=== PATIENT | female | born 2000 | race Caucasian/White ===

== ENCOUNTER 2022-08-11 18:56 | Emergency (ER) | payer MEDICAID, SELFPAY ==
[2022-08-11 18:56] VITALS: BP 117/74; PULSE 100; RESP 23; TEMP 36.7; O2SAT 98; BMI 23.8
--- NOTE | 2022-08-11 19:14 | ED.VIS.DYS ---
HPI History of Present Illness Chief Complaint: Shortness of Breath Narrative Narrative: 22-year-old female presenting with shortness of breath. She states she developed a cold about 3 days ago. She had cough, body aches. She denies any fever. She states that she is getting worse and she feels more short of breath. She reports has a history of asthma and she feels like currently she is having shallow breathing. Denies chest pain. She does state that she had some cammie sputum from coughing so much. States her back now hurts from coughing so much. Denies other significant medical history. No concern for . No known drug allergies. [facility] Medical History Asthma Home Medications prednisone 50 mg tablet 50 mg PO DAILY 5 days #5 tabs 08/11/22 [Rx Last Taken Unknown] Allergy/AdvReac Type Severity Reaction Status Date / Time No Known Allergies Allergy Verified 08/11/22 18:58 Surgical History no surgical history Social History Smoking Status: Never smoker ROS ROS ED Constitutional Constitutional ED: Reports chills; Denies fever(s) or sweats Eyes Eyes: Denies blurry vision or change in vision ENT ENT ED: Denies ear pain or sore throat Cardiovascular Cardiovascular: Denies chest pain, palpitations or racing heartbeat Respiratory/Chest Respiratory/Chest: Reports cough; Denies dyspnea or sputum Gastrointestinal Gastrointestinal: Denies abdominal pain, constipation, diarrhea, nausea or vomiting Genitourinary Genitourinary ED: Denies dysuria, hematuria or urinary frequency Musculoskeletal Musculoskeletal: Reports back pain and myalgias; Denies arthralgias or neck pain Integumentary Denies abscess, Abrasions or rash Neurologic Neurologic: Denies headache(s), paresthesias or weakness Psychiatric Psychiatric: Denies anxiety, depression, suicidal ideation or suicidal thoughts Endocrine Endocrinology: Denies polydipsia or polyuria EXAM Physical Exam Const Vital Signs: 08/11/22 18:56 08/11/22 19:12 08/11/22 19:16 Temperature 98.1 F Temperature Source Temporal Pulse Rate 100 115 H Respiratory Rate 23 H 20 H Respiratory Effort Short of Breath Respiratory Depth Deep Respiratory Pattern Tachypnea Normal Blood Pressure 117/74 Blood Pressure Mean 88 Pulse Ox 98 Oxygen Delivery Method Room Air Room Air 08/11/22 19:16 08/11/22 21:38 Temperature Temperature Source Pulse Rate 62 Respiratory Rate 16 15 Respiratory Effort Normal Non-Labored Short of Breath Respiratory Depth Deep Respiratory Pattern Normal Blood Pressure 125/77 H Blood Pressure Mean Pulse Ox 98 99 Oxygen Delivery Method Room Air Positive well nourished General Appearance ED: NAD; Negative for pallor HEENT Reports moist mucous membranes Eyes PERRL and EOMs intact bilaterally Resp Resp Narrative: Slightly tachypneic Auscultation: wheezes expiratory wheezes; Negative for rales or rhonchi Cardio regular rate and regular rhythm Extremity normal to inspection General Extremety ED: Yes edema General Extremity: edema Neuro oriented x3 and CN's II-XII intact bilaterally Sensorium / Orientation: alert Motor Exam: strength 5/5 throughout Psych mental status grossly normal Skin no wounds General Skin Exam: Negative for jaundice or pallor MDM MDM MDM Narrative Medical decision making narrative: 19-year-old female with history of asthma presenting for shortness of breath. She is wheezing on examination. She reports that her boyfriend was sick last week and she likely caught a cold from him. Patient given prednisone 60 mg p.o., breathing treatments. I will obtain a chest x-ray to rule out pneumonia. After breathing treatments patient was reevaluated and feels much improved. She is given a prednisone burst for home. I have gave her 2 puffs of albuterol inhaler to send home with her due to the time a night. She is amenable to this plan. Return precautions discussed. Impression: 1. Viral syndrome 2. Asthma exacerbation Radiography Diagnostic Testing: Clinical Impression(s) from Imaging Studies Chest X-Ray 08/11/22 19:33 IMPRESSION: No radiographic evidence of acute cardiopulmonary disease. Electronically Signed: Arpan Vu MD at 20:18 EDT , Discharge Plan Triage Chief Complaint: Shortness of Breath ED Provider: Darrel Gallardo Dx/Rx/DC Orders Instructions: ED Asthma, Acute (Adult), ED Viral Syndrome (Adult) Prescriptions: New prednisone 50 mg tablet 50 mg PO DAILY 5 Days Qty: 5 0RF Primary Care Provider: Care Physician,No Primary Referrals: Vasu Barrera MD [Med Staff - Active Staff] - 3-5 Days Care Physician,No Primary [Primary Care Provider] - Disposition Disposition: Home, Self Care Discharge Date/Time: 08/11/22 21:38
[2022-08-11 19:16] VITALS: PULSE 115; RESP 16; RESP 20; O2SAT 98
[2022-08-11] MEDS: Albuterol 2.5 MG/3 ML VIAL.NEB. INHALATION (19:16)
[2022-08-11] MEDS: Ipratropium/Albuterol Sulfate 3 ML AMPUL.NEB INHALATION (19:16)
[2022-08-11] MEDS: predniSONE 20 MG Tablet 60 MG PO (19:29)
--- NOTE | 2022-08-11 19:33 | RAD_ITS ---
EXAM: XR CHEST, 1 VIEW CLINICAL INDICATION: cough TECHNIQUE: Frontal view of the chest. This report was created using [employer] report generation technology. COMPARISON: None. FINDINGS: LUNGS AND PLEURAL SPACES: Unremarkable. No consolidation or edema. No pneumothorax. No effusion. HEART: Unremarkable. Cardiac silhouette not enlarged. MEDIASTINUM: Central airways and mediastinal contour are unremarkable. BONES/JOINTS: Unremarkable. SOFT TISSUES: Unremarkable. RAD/Chest 1 View (Portable) IMPRESSION: No radiographic evidence of acute cardiopulmonary disease. Electronically Signed: Arpan Vu MD at 20:18 EDT ,
--- NOTE | 2022-08-11 19:33 | CPS ---
x1 Albuterol given to pt. in ER as well
[2022-08-11] MEDS: Albuterol Sulfate 8 gm Inhaler (60 puffs) 2 PUFF INHALATION (21:37)
[2022-08-11 21:38] VITALS: BP 125/77; PULSE 62; RESP 15; O2SAT 99
== END 2022-08-11 21:38 | disposition home or self-care (01) ==
PROVIDERS: Emergency Provider Student in an Organized Health Care Education/Training Program; Visit Provider Student in an Organized Health Care Education/Training Program
DX: B34.9 Viral infection, unspecified (principal); J45.901 Unspecified asthma with (acute) exacerbation
CPT/HCPCS: G0463; 71045; 94640; 99252; 99283

== ENCOUNTER 2023-06-21 15:08 | Emergency (ER) | payer BC, SELFPAY ==
[2023-06-21 15:09] VITALS: BP 110/82; PULSE 98; RESP 16; TEMP 36; O2SAT 99; BMI 23.1
--- NOTE | 2023-06-21 15:30 | EDS_ITS ---
HPI History of Present Illness Chief Complaint: Chest Other Detail of Chief Complaint: rib pain Informant: patient Narrative Narrative: About 3 weeks ago patient noticed acute onset of pain in her left anterior lateral rib cage just below her breast while lifting something at work. Has been sore ever since, but not severe until today when she sneezed. At that point, she felt a pop and severe pain that has been persistent since then, r adiates to her sternum and around the nearby ribs to her left back but not all the way to the spine. Hurts to move, hurts to breathe, and when she takes of breath and it hurts and makes her winded because the pain is so bad but she is not dyspneic if she is breathing gently and not causing lots of pain. Denies any other pain or injury. No recent URIs. [facility] Medical History Asthma Home Medications prednisone 50 mg tablet 50 mg PO DAILY 5 days #5 tabs 08/11/22 [Rx Last Taken Unknown] naproxen 500 mg tablet 500 mg PO BID PRN #20 tabs 06/21/23 [Rx Last Taken Unknown] tramadol 50 mg tablet 50 mg PO Q6H PRN pain 3 days #12 tabs 06/21/23 [Rx Last Taken Unknown] Allergy/AdvReac Type Severity Reaction Status Date / Time No Known Allergies Allergy Verified 06/21/23 15:09 Social History Smoking Status: Never smoker ROS ROS ED Constitutional Constitutional ED: Denies chills or fever(s) Eyes Eyes: Denies change in vision or diplopia ENT ENT ED: Denies rhinorrhea or sore throat Cardiovascular Cardiovascular: Reports chest pain; Denies palpitations Respiratory/Chest Respiratory/Chest: Reports dyspnea; Denies cough Gastrointestinal Gastrointestinal: Denies abdominal pain, diarrhea, nausea or vomiting Genitourinary Genitourinary ED: Denies dysuria or hematuria Musculoskeletal Musculoskeletal: Denies back pain or neck pain Integumentary Denies abscess or rash Neurologic Neurologic: Denies headache(s), paresthesias or weakness Psychiatric Psychiatric: Denies anxiety or suicidal thoughts EXAM Physical Exam Const Vital Signs: 06/21/23 15:09 Temperature 96.8 F L Temperature Source Temporal Pulse Rate 98 Respiratory Rate 16 Blood Pressure 110/82 H Blood Pressure Mean 91 Pulse Ox 99 Oxygen Delivery Method Room Air Positive well nourished and well developed General Appearance ED: well developed and NAD HEENT Reports moist mucous membranes normocephalic and atraumatic Eyes PERRL and EOMs intact bilaterally Neck full ROM and supple Chest Wall inspection of chest normal Chest Narrative: Tender approximately ribs 5-8 left lateral clavicular line, there is no crepitance or obviously palpable step-off, there is no flail chest. With gentle tidal volume she does not splint and is in no distress. There are equal breath sounds bilaterally. Resp normal respiratory effort and clear to auscultation bilaterally Resp Narrative: Clear except for slight end expiratory wheeze on the left side. Effort and Inspection: able to speak in complete sentences Cardio regular rate, regular rhythm and no murmurs GI non-tender and non-distended Auscultation: normoactive bowel sounds Palpation: soft Back/Spine General Back: other FROM Extremity normal to inspection General Extremety ED: Negative for edema, pulses abnormal or tenderness General Extremity: Negative for edema or pulses abnormal Neuro oriented x3, CN's II-XII intact bilaterally and no sensory deficits noted Sensorium / Orientation: awake and alert Motor Exam: strength 5/5 throughout Skin no rashes or lesions noted and no wounds MDM MDM MDM Narrative Medical decision making narrative: 5 view x-ray series of the left rib cage including PA chest all normal on my interpretation including lack of any rib fractures or pneumothorax. Radiology in agreement. Patient's pain is all very reproducible on exam and worse with movement, and chest wall etiology makes the most sense here. I do not think she needs to be worked up for cardiac etiologies or pulmonary embolus. Differential includes subluxed rib, intercostal strain/tear, nonvisualized nondisplaced fracture. Supportive care advised at this time, as well as outpatient follow- up, she is prescribed Naprosyn and some tramadol to use at night for sleep which she was having trouble with due to the pain, she does not have a PCP so she was referred to the next physician on the unassigned list Dr. Connolly. Radiography Diagnostic Testing: Clinical Impression(s) from Imaging Studies Ribs w/Chest X-Ray 06/21/23 15:30 IMPRESSION: RIBS: Normal x-ray examination of the ribs. CHEST: Normal x-ray examination of the chest. Electronically Signed: Jerod Mckeon MD at 15:49 EST , Discharge Plan Triage Chief Complaint: Chest Other ED Provider: Sammy Arceo Dx/Rx/DC Orders Clinical Impression: Soft tissue injury of left chest wall Instructions: ED Strain Chest Wall Prescriptions: New tramadol 50 mg tablet 50 mg PO Q6H PRN (Reason: pain) 3 Days Qty: 12 0RF naproxen 500 mg tablet 500 mg PO BID PRN Qty: 20 0RF No Action prednisone 50 mg tablet 50 mg PO DAILY 5 Days Qty: 5 0RF Primary Care Provider: Care Physician,No Primary Referrals: Afshin Connolly DO [Med Staff - Admissions Supervisor] - (call for appt) Care Physician,No Primary [Primary Care Provider] - Disposition Disposition: Home, Self Care
--- NOTE | 2023-06-21 15:30 | RAD_ITS ---
STUDY: X-RAY - UNILATERAL RIBS ( LEFT ) WITH CHEST REASON FOR EXAM: Female, 22 years old. Pain/injury TECHNIQUE - RIBS: 4 view(s) of the ribs. TECHNIQUE - CHEST: Single PA view of the chest. COMPARISON: None. FINDINGS - RIBS: Normal visualized ribs without a demonstrated fracture. FINDINGS - CHEST: Hyperinflation. Scattered calcified granulomas. There is no demonstrated pleural abnormality. Normal size heart. Normal mediastinum and car. Normal visualized pulmonary arteries. Normal visualized aortic arch and descending thoracic aorta. Normal visualized thoracic spine. Normal visualized ribs, clavicles, and shoulders. There is no demonstrated abnormality of the visualized soft tissue structures of the upper abdomen. RAD/Ribs Uni Min 3V w/PA Chest IMPRESSION: RIBS: Normal x-ray examination of the ribs. CHEST: Normal x-ray examination of the chest. Electronically Signed: Jerod Mckeon MD at 15:49 EST ,
--- OUTSIDE RECORDS SUMMARY | 2023-06-21 16:20 | XMS RPT_ITS | CCD ---
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 Name Role Phone DORETHA COLLINS Unavailable Unavailable REFERRED, SELF Unavailable Unavailable DORETHA COLLINS Unavailable Unavailable Unavailable Primary Care Provider Unavailmichelle e KERA BURNETT Admitting Unavailable TRENT GARNICA Referring Unavaila PRADEEP Iglesias Consulting Unavailable LYNN MARY Attending Unavailable TRENT GARNICA Attending Unavaila VANCE Vo Attending Unavailable Unavailable Primary Care Provider Unavailmichelle e Allergies Allergy Classification Reported Allergen(s) Allergy Type Date of Onset Reaction(s) Facility (1 source) Seasonal allergy; Translations: [SEASONAL ALLERGIES] Propensity to adverse reactions (disorder) 4 [facility] Medications Current Medications Medication Drug Class(es) Dates Sig (Normalized) Sig (Original) [id number] 200 actuat albuterol 0.09 mg/actuat metered dose inhaler (2 sources) beta2-Adrenergic Agonist Start: 03-15-2023 take 2 puff(s) by inhalation every four hours as needed for wheezing Albuterol 108 (90 Base) MCG/ACT Aero Soln inhaler Inhale 2 puffs every 4 hours as needed for Wheezing or Shortness of Breath. 18 g 0 03/15/2023 Active Completed/Discontinued Medications Medication Drug Class(es) Dates Sig (Normalized) Sig (Original) albuterol 0.833 mg/ml / ipratropium bromide 0.167 mg/ml inhalation solution (1 source) Anticholinergic, beta2-Adrenergic Agonist Start: 3 End: 3 Ipratropium-albuterol (DUONEB) 0.5-2.5 (3) MG/3ML nebulizer solution 3 mL ibuprofen 400 mg oral tablet (1 source) Nonsteroidal Anti-inflammatory Drug Start: 9 End: 9 ibuprofen (ADVIL;MOTRIN) tablet 400 mg methylPREDNISolone 125 mg injection (1 source) Corticosteroid Start: 3 End: 3 methylPREDNISolone sodium succinate (SOLU-MEDROL) injection 125 mg sulfamethoxazole 800 mg / trimethoprim 160 mg oral tablet (2 sources) Dihydrofolate Reductase Inhibitor Antibacterial, Sulfonamide Antimicrobial Start: 9 End: 9 sulfamethoxazole-trim ethoprim (BACTRIM DS;SEPTRA DS) 800-160 MG per tablet 1 tablet Problems Active Problems Problem Classification Problem Date Documented Date Episodic/Chronic Acute and chronic tonsillitis (1 source) Peritonsillar abscess; Translations: [Peritonsillar abscess] Onset: 04-21-2022 Episodic Asthma (5 sources) Exacerbation of asthma; Translations: [Unspecified asthma with (acute) exacerbation] Onset: 03-15-2023 03-15-2023 Chronic Inflammatory diseases of female pelvic organs (2 sources) Cyst of Bartholin's gland duct; Translations: [Acute vulvitis] Onset: 12-27-2017 12-27-2017 Episodic Menstrual disorders (1 source) Dysmenorrhea; Translations: [Severe dysmenorrhea] Onset: 09-13-2016 09-13-2016 Chronic Other female genital disorders (1 source) Abnormal uterine bleeding; Translations: [Abnormal uterine bleeding (AUB)] Onset: 09-13-2016 09-13-2016 Chronic Other lower respiratory disease (4 sources) Dyspnea; Translations: [Shortness of breath] Onset: 03-15-2023 03-15-2023 Episodic Other lower respiratory disease (1 source) Shortness of breath; Translations: [Shortness of breath] Onset: 03-16-2023 Episodic Past or Other Problems Problem Classification Problem Date Documented Da te Episodic/Chronic Other connective tissue disease (1 source) Other muscle spasm; Translations: [Trapezius muscle spasm] Onset: 07-20-2021 Episodic Results Test Name Value Interpretation Reference Range Facil ity Vital Signs Date Time Vital Sign Value Performing Clinician Jaquelin glass 03-15-2023 22:47-0400 SaO2% (BldA) [Mass fraction] 91.9 % [facility] 03-15-2023 22:05-0400 Body height 162.6 cm [facility] 03-15-2023 22:05-0400 SaO2% (BldA) [Mass fraction] 99 % [facility] 03-15-2023 22:04-0400 Body temperature 98.1 [degF] [facility] 03-15-2023 22:04-0400 Diastolic blood pressure 84 mm[Hg] [facility] 03-15-2023 22:04-0400 Heart rate 74 /min [facility] 03-15-2023 22:04-0400 Respiratory rate 22 /min [facility] 03-15-2023 22:04-0400 Systolic blood pressure 125 mm[Hg] [facility] 02-11-2019 17:45-0400 BMI (Body Mass Index) 18.88 kg/m2 [facility], [place] 02-11-2019 17:45-0400 Body Temperature 98.29 [degF] [facility], [place] 02-11-2019 17:45-0400 Body weight 49.9 kg [place], [place] 02-11-2019 17:45-0400 BP Diastolic 79 mm[Hg] [facility] , [place] 02-11-2019 17:45-0400 BP Systolic 107 mm[Hg] [facility] [place] 02-11-2019 17:45-0400 Height 162.6 cm [facility] [place] 02-11-2019 17:45-0400 Pulse (Heart Rate) 91 /min [facility] [place] 02-11-2019 17:45-0400 Pulse Oximetry 100 % [facility] [place] 02-11-2019 17:45-0400 Respiratory Rate 16 /min [facility], [place] Encounters Encounter Date Encounter Type Care Provider Facility Start: 03-16-2023 End: 03-16-2023 Emergency department patient visit [facility] Start: 03-15-2023 End: 03-15-2023 Emergency department patient visit [facility] Emergency Department Procedures Date Procedure Procedure Detail Performing Clinician Start: 03-15-2023 Radiologic exam ches t single view Girish Hilton [employer] OF [employer] Work Phone: Start: 03-15-2023 Basic metabolic pane l calcium total Girish Hilton [employer] Work Phone: Start: 03-15-2023 BLOOD GAS VENOUS Girish Hilton [employer] Work Phone: Start: 03-15-2023 Complete blood count with white cell differential, automated Girish Hiltno [employer] OF [employer] Work Phone: Plan of Treatment Date Care Activity Detail Author Start: 01-28-2023 Influenza vaccination INFLUENZA VACC INE (#1) [facility] Start: 02-24-2022 DTaP/Tdap/Td vaccine (7 - Td) DTaP/Tdap/Td vaccine (7 - Td) [place], [place] Start: 02-24-2022 Tetanus vaccination TETANUS [facility] Start: 2020 Screening for malign ant neoplasm of cervix CERVICAL CANCER SCREENING DISCUSSION [facility] Start: 01-28-2019 Influenza vaccination Flu vaccine (# 1) [place], [place] Start: 2015 Chlamydia screen Chlamydia screen [place], [place] Start: 2015 Screening for Chlamy martín trachomatis CHLAMYDIA SCREEN [facility] Start: 2014 HIV screen HIV screen [place], [place] Start: 2014 HIV screening HIV SCREENING DISCUSSION [facility] Start: 2014 HPV vaccine (1 - Fem malvin 3-dose series) HPV vaccine (1 - Female 3-dose series) [place], [place] Start: 2010 Vaccination for vida n papillomavirus HPV VACCINE ADOL (1 - 2-dose series) [facility] Start: 01-22-2000 COVID-19 VACCINE (#1) COVID-19 VACCI NE (#1) [facility] Start: 1999 Hepatitis C screening HEPATITI S C VIRUS SCREENING [facility] Start: 1999 Screening for Chlamy martín trachomatis GONORRHEA SCREEN [facility] Immunizations Immunization Date Immunization Notes Care Provider Prudence cardenas 02-25-2012 influenza virus vacc ine, unspecified formulation [facility] Payers Date Payer Category Payer Unknown [employer] O PPO POS [id number] 2022-Present [address] [place] [address] [id number] 2022 Unknown [id number] 2021 Unknown [id number] 2016 Unknown [employer] [address] xxxxxxxxxxxx 2016-Present [phone] [address] [place] [address] xxxxxxxxxxxx [id number] 1999 Unknown [id number] Unknown [id number] Social History Date Type Detail Facility Start: 02-11-2019 Tobacco smoking stat [facility] Current every day smoker [place], [place] Start: 02-11-2019 Alcohol intake No [place], [place] Start: 1999 Sex Assigned At Not on file [place] Start: 03-15-2023 Tobacco smoking stat [facility] Never smoked tobacco [facility] Start: 03-15-2023 Tobacco use and exposure Smokeless tobacco non-user [facility] Start: 03-15-2023 Alcohol intake Current drinke r of alcohol (finding) [facility] Start: 03-15-2023 Alcohol Comment occasional [facility] Clinical Notes 04-21-2022 to 03-15-2023 Gwendolyn Sharp RN - 03/15/2023 11:52 PM Sayda Sharp RN - 03/15/2023 11:52 PM Shiraz Stanford RN - 03/15/2023 10:28 PM EDTMdawn Stanford RN - 03/15/2023 10:08 PM EDTDischarge Instructions Note Date & Type Note Facility 03-15-2023 Emergency department Note Reviewed discharge instructions with patient who verbalizes understanding, and denies any questions at this time. Patient ambulates out of ED with friend. [facility] 03-15-2023 Emergency department Note Reviewed discharge instructions with patient who verbalizes understanding, and denies any questions at this time. Patient ambulates out of ED with friend. Report to MELISSA Quintero Respiratory called at this time Notified respiratory for duoneb- per respiratory its going to be like 10 minutes before I can get in there. Attempted to call 2nd respiratory therapist to provide breathing treatment unable to contact. documented in this encounter [facility] 03-15-2023 Hospital Discharg e instructions DOLORES Limon - 03/15/2023 11:25 PM EDT Please pick your medications from the pharmacy and take as instructed. Please use your albuterol inhaler as instructed. Please avoid asthma triggers. You may want to stay away from your roommate's rabbit which could be triggering your asthma exacerbation. Please call the provided number to set up establishment with a PCP and follow-up as needed. The following attachments cannot be sent through Care Everywhere.Asthma: Action Plan (Peruvian)Asthma Action Plan: Video (Peruvian)Asthma: Asthma Control (Peruvian)SOB (Shortness of Breath) (Peruvian)documented in this encounter [facility] 03-15-2023 Miscellaneous Notes Formattin g of this note might be different from the original. Pt instructed on MDI spacer use, states she has used one before. Equipment and MDI in pts. Care upon RT exit. documented in this encounter [facility] 03-15-2023 Progress note Formatting of t his note might be different from the original. Pt instructed on MDI spacer use, states she has used one before. Equipment and MDI in pts. Care upon RT exit. [facility] 03-15-2023 Emergency department Note Report to MELISSA Quintero [facility] 03-15-2023 Emergency department Note Respiratory called at this time [facility] 03-15-2023 Emergency department Note Notified respiratory for duoneb- per respiratory its going to be like 10 minutes before I can get in there. Attempted to call 2nd respiratory therapist to provide breathing treatment unable to contact. [facility] 04-21-2022 Note HNO ID: [id number] Author: BAYRON Kat Service: Care Management Author Type: Traffic Attendant Type: Care Mgt Initial Assessment Filed: 04/21/2022 1:13 PM Note Text: CARE MANAGEMENT: ASSESSMENT AND DISCHARGE PLAN SERVICE DATE: April 21, 2022 SERVICE TIME: 1:07 PM PRIMARY CARE PHYSICIAN: No primary care provider on file. Phone: None Primary Contact: Extended Emergency Contact Information Primary Emergency Contact: AMELIA CATHERINE Address: [address] [place] [address] [place] Mobile Relation: Mother Secondary Emergency Contact: Yoel Pantoja Mobile Relation: Father ADMISSION STATUS: Inpatient Insurance Provider: N/A NEEDS PRIOR TO DISCHARGE Needs Prior to Discharge: To Be Determined;Other: See Comment;Pharmacy Bedside Delivery (Boyfriend to transport home) POTENTIAL TRANSITION PLANS Home;To Be Determined Patient's perception of need for this admission: Peritonsillar abscess ADVANCE DIRECTIVES Current Advance Directive: Health Care Power of Copying Machine Repairer;Living Will In Chart: No MS/BEHAVIOR Baseline Mental Status Prior to this Illness what was the patient's Baseline Mental Status?: Alert AND Oriented Prior to this illness, has anyone described the patient having any of the following behaviors?: Not Applicable Relationship of the informant to the patient:: Self READMISSION Last Discharge Date: 04/21/22 Is this Within the Past 30 days? 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 scores in the EMR?: No Any potential risks related to substance abuse and/or behavioral health?: No CAREGIVER ASSESSMENT Caregiver is ready, willing and able to meet the patient's needs as recommended by the inter-professional team:: No Caregiver needed Patient's transition needs and plan for meeting these needs: Home with self care No medical discharge barriers identified at this time. No social discharge barriers identified at this time. No behavioral/cognitive discharge barriers identified at this time. No functional discharge barriers identified at this time. FREEDOM OF CHOICE EXPLAINED: Are you interested in bedside delivery of your medications? Yes ASSESSMENT AND PLAN: SW met with pt at bedside to complete initial. 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 Pt is not currently working but denies any trouble affording food or medication. Pt state she does not have health insurance. SW made referral to [facility] for medicaid screen and Financial Counseling for HCAP application. SW also approved indigent meds and tubed form to pharmacy. SW also provided pt with list of PCPs. Pt's boyfriend to transport pt home. SIGNATURE: BAYRON Kat PATIENT NAME: Mario Alberto Pantoja DATE: April 21, 2022 TIME: 1:07 PM CONTACT #: [phone] [facility] 04-21-2022 Note HNO ID: [id number] Author: Zaina Becmkan RPh Service: Pharmacy Author Type: Pharmacist Type: Plan of Care Filed: 04/21/2022 8:32 AM Note Text: PHARMACY MEDICATION REVIEW Patient Name: Mario Alberto Pantoja : 2000 The below information represents the best possible medication history: Yes Medication history completed by: Pharmacist: Zaina Beckman RPh Source of history: Patient - does not take any home medications Medication nonadherence identified: No barriers noted Reconciliation completed: Yes Completed by: Zaina Beckman RPh All BOTTLE HOUSE 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 Yudelka Lyman in this building. Bactrim ( may cause rash, so stop it if that occurs.) OTC pain meds if desired. documented in this encounter Assessments Diagnosis Bartholin cyst- Primary Cyst of Bartholin's gland Additional Source Comments INFORMATION SOURCE (unrecogn ized section and content) DATE CREATED AUTHOR AUTHOR'S ORGANIZ ATION 05/21/2020 [place] DATE CREATED AUTHOR AUTHOR'S ORGANIZ ATION 04/26/2022 [facility] DATE CREATED AUTHOR AUTHOR'S ORGANIZ ATION 05/16/2023 [facility] [place] Reason for Visit (unrecogniz ed section and content) Reason Comments Shortness of Breath Pt c/o shortness of breath due to asthma attack. Patient states that she used the last of her albuterol around 9 am Scheduled Active and Recently Administ ered Medications (unrecognized section and content) FOR RECORDS PERTAINING TO PATIENTS WHO ARE OR HAVE BEEN ENROLLED IN A CHEMICAL DEPENDENCY/SUBSTANCEABUSE PROGRAM, SOME INFORMATION MAY BE OMITTED. This clinical summary was aggregated from multiple sources. Caution should be exercised in using it in the provision of clinical care. This summary normalizes information from multiple sources, and as a consequence, information in this document may materially change the coding, format and clinical context of patient data. In addition, data may be omitted in some cases. CLINICAL DECISIONS SHOULD BE BASED ON THE PRIMARY CLINICAL RECORDS. [employer] provides no warranty or guarantee of the accuracy or completeness of information in this document.
[2023-06-21 16:59] VITALS: PULSE 78; RESP 20; O2SAT 99
== END 2023-06-21 17:01 | disposition home or self-care (01) ==
PROVIDERS: Emergency Provider Emergency Medicine; Visit Provider Emergency Medicine
DX: S29.009A Unspecified injury of muscle and tendon of unspecified wall of thorax, initial encounter (principal); X58.XXXA Exposure to other specified factors, initial encounter
CPT/HCPCS: 71101; 99282